=== PATIENT | male | born 1945 ===

== ENCOUNTER 2018-05-27 12:40 | Emergency (ER) | payer BC, MEDICARE ==
[2018-05-27] MEDS ORDERED: Aspirin 81 MG Tab.Chew PO SCH (13:00)
[2018-05-27] MEDS ORDERED: Sodium Chloride 0.9% 1,000 ML IV SCH (13:10)
[2018-05-27] MEDS ORDERED: Clopidogrel 75 MG Tab PO ONE (13:17)
[2018-05-27] MEDS ORDERED: Tenecteplase 50 MG Kit IV ONE (13:19)
[2018-05-27] MEDS ORDERED: Heparin Sodium 5,000 UNITS/0.5 ML Syringe IVPUSH ONE (13:20)
[2018-05-27] MEDS ORDERED: Heparin Sodium/D5W 25,000 UNITS/500 ML BAG IV SCH (13:30)
--- NOTE | 2018-05-27 14:12 | EDM.PDOC ---
ED HPI GENERAL MEDICAL PROBLEM - General Chief Complaint: General Stated Complaint: chest pain Time Seen by Provider: 05/27/18 12:50 Source of Information: Reports: Patient History Limitations: Reports: No Limitations - History of Present Illness INITIAL COMMENTS - FREE TEXT/NARRATIVE: This is a 73yo M presenting with chest pressure. He states he first starting having chest pressure this morning around 8 am after shoveling snow. He felt that it may be his muscles and then starting getting diaphoretic. He felt that the symptoms improved and did not come into the clinic or ER. He noted that the pressure went to his back and then back to his chest. He was nauseated as well. He was driven by his granddaughter to the ER around 1240pm. He denies any dizziness or shortness of breath but he still has a constant chest pressure. He took one baby aspirin this am. Onset: Today Duration: Hour(s):, Constant Location: Reports: Chest Quality: Reports: Ache Severity: Mild Improves with: Reports: None Worsens with: Reports: None - Related Data Allergies Allergy/AdvReac Type Severity Reaction Status Date / Time No Known Allergies Allergy Verified 05/27/18 13:40 Home Meds: Home Meds cephALEXin [Cephalexin] 05/27/18 [History] ED ROS GENERAL - Review of Systems Review Of Systems: ROS reveals no pertinent complaints other than HPI. ED EXAM, GENERAL - Physical Exam Exam: See Below Exam Limited By: No Limitations General Appearance: Alert, WD/WN, Mild Distress Eye Exam: Bilateral Eye: EOMI, PERRL Ears: Normal External Exam Nose: Normal Inspection Throat/Mouth: Normal Inspection Head: Atraumatic, Normocephalic Neck: Normal Inspection Respiratory/Chest: No Respiratory Distress, Lungs Clear, Normal Breath Sounds Cardiovascular: Normal Peripheral Pulses, Regular Rate, Rhythm, No Edema Peripheral Pulses: 2+: Dorsalis Pedis (L), Dorsalis Pedis (R) GI/Abdominal: Normal Bowel Sounds, Soft, Non-Tender Extremities: Normal Inspection, Normal Capillary Refill Neurological: Alert, Oriented, CN II-XII Intact Course - Orders/Labs/Meds Orders: Active Orders 24 hr Category Date Time Status EKG Documentation Completion [RC] ASDIRECTED Care 05/27/18 12:45 Active Chest 1V Frontal [CR] Stat Exams 05/27/18 12:45 Taken Aspirin Med 05/27/18 13:00 Active 243 mg PO DAILY Heparin Sodium/D5W [Heparin 25,000 Units in D5W 500 ML] Med 05/27/18 13:30 Ordered 25,000 units in 500 ml IV TITRATE EKG 12 Lead [EK] Routine Ther 05/27/18 12:45 Ordered Medication Orders Aspirin (Aspirin) 243 mg PO DAILY DIEGO Heparin Sodium/Dextrose (Heparin 25,000 Units In D5w 500 Ml) 25,000 units in 500 mls @ 0 mls/hr IV TITRATE DIEGO Labs: Laboratory Tests 05/27/18 05/27/18 05/27/18 Range/Units 12:45 12:54 12:54 WBC 14.6 H (4.0-11.0) K/uL RBC 4.99 (4.50-6.50) M/uL Hgb 14.8 (13.0-18.0) g/dL Hct 43.7 (40.0-54.0) % MCV 88 (76-96) fL MCH 29.7 (27.0-32.0) pg MCHC 33.9 (31.0-35.0) g/dL RDW 13.9 (11.0-16.0) % Plt Count 317 (150-400) K/uL MPV 9.4 (6.0-10.0) fL Neut % (Auto) 90.3 H (45.0-70.0) % Lymph % (Auto) 6.1 L (20.0-40.0) % [place] % (Auto) 3.2 (3.0-10.0) % Eos % (Auto) 0.1 L (1.0-5.0) % Baso % (Auto) 0.3 (0.0-0.5) % Neut # (Auto) 13.15 H (2.00-7.50) K/uL Lymph # (Auto) 0.89 L (1.50-4.00) K/uL [place] # (Auto) 0.46 (0.20-0.80) K/uL Eos # (Auto) 0.02 L (0.04-0.40) K/uL Baso # (Auto) 0.04 (0.02-0.10) K/uL PT 9.4 (9.0-11.5) sec INR 1.0 (1.0-3.5) Sodium 136 (136-145) mmol/L Potassium 4.2 (3.5-5.1) mmol/L Chloride 98 (98-107) mmol/L Carbon Dioxide 26.1 (21.0-32.0) mmol/L Anion Gap 16.1 H (5.0-15.0) mmol/L BUN 23 (8-26) mg/dL Creatinine 1.61 H (0.70-1.30) mg/dL Est Cr Clr Drug Dosing TNP Estimated GFR (MDRD) 43 L (>60) MLS/MIN BUN/Creatinine Ratio 14.3 (6-25) Glucose 201 H (74-100) mg/dL Calcium 9.6 (8.5-10.1) mg/dL Total Bilirubin 0.4 (0.0-1.0) mg/dL AST 44 H (15-37) U/L ALT 32 (12-78) U/L Alkaline Phosphatase 91 (46-116) U/L Troponin I 3.649 H* (0.000-0.060) ng/mL B-Natriuretic Peptide 608 H (0-125) pg/mL Total Protein 8.0 (6.4-8.2) g/dL Albumin 3.9 (3.4-5.0) g/dL Globulin 4.1 (2.2-4.2) g/dL Albumin/Globulin Ratio 1.0 (0.8-2.0) TSH, Ultra Sensitive 1.152 (0.358-3.740) uIU/mL Meds: Medications Generic Name Dose Route Start Last Admin Trade Name Freq PRN Reason Stop Dose Admin Aspirin 243 mg 05/27/18 13:00 Aspirin PO DAILY DIEGO Heparin Sodium/Dextrose 25,000 units in 500 mls @ 0 mls/hr 05/27/18 13:30 Heparin 25,000 Units In D5w 500 Ml IV TITRATE DIEGO 12 UNITS/KG/HR Discontinued Medications Generic Name Dose Route Start Last Admin Trade Name Freq PRN Reason Stop Dose Admin Clopidogrel Bisulfate 300 mg 05/27/18 13:17 Plavix PO 05/27/18 13:18 ONETIME ONE Heparin Sodium (Porcine) 4,000 units 05/27/18 13:20 Heparin Sodium IVPUSH 03/04/19 13:21 ONETIME ONE Tenecteplase 35 mg 05/27/18 13:19 Tnkase IV 05/27/18 13:20 ONETIME ONE Protocol Departure - Departure Time of Disposition: 14:10 Disposition: DC/Tfer to Acute Hospital 02 Condition: Undetermined Clinical Impression: DE, Myocardial infarction STEMI (ST elevation myocardial infarction) Qualifiers: Involved coronary artery: left main coronary artery Qualified Code(s): I21.01 - ST elevation (STEMI) myocardial infarction involving left main coronary artery - Discharge Information Referrals: PCP,None [Primary Care Provider] - - Problem List & Annotations (1) STEMI (ST elevation myocardial infarction) SNOMED Code(s): 255673263 Code(s): I21.3 - ST ELEVATION (STEMI) MYOCARDIAL INFARCTION OF [facility] SITE Status: Acute Priority: High Current Visit: Yes Qualifiers: Involved coronary artery: left main coronary artery Qualified Code(s): I21.01 - ST elevation (STEMI) myocardial infarction involving left main coronary artery - Problem List Review Problem List Initiated/Reviewed/Updated: Yes - My Orders Last 24 Hours: My Active Orders 05/27/18 12:45 EKG Documentation Completion [RC] ASDIRECTED Chest 1V Frontal [CR] Stat EKG 12 Lead [EK] Routine 05/27/18 13:00 Aspirin 243 mg PO DAILY 05/27/18 13:30 Heparin Sodium/D5W [Heparin 25,000 Units in D5W 500 ML] 25,000 units in 500 ml IV TITRATE - Assessment/Plan Last 24 Hours: My Active Orders 05/27/18 12:45 EKG Documentation Completion [RC] ASDIRECTED Chest 1V Frontal [CR] Stat EKG 12 Lead [EK] Routine 05/27/18 13:00 Aspirin 243 mg PO DAILY 05/27/18 13:30 Heparin Sodium/D5W [Heparin 25,000 Units in D5W 500 ML] 25,000 units in 500 ml IV TITRATE Plan: Patient placed on thrombolytics. Transfer via [employer] [facility] fixed wing. Accepting [employer] Dr. De La Rosa. Patient will go through ER. Grand-daughter present and patient has notified family himself.
--- NOTE | 2018-05-27 14:16 | CR ---
DATE OF SERVICE: 05/27/18 CLINICAL DATA: Chest pain. AP PORTABLE CHEST: No priors. The heart size is normal. There is calcification of the aortic arch. The lungs are clear. No pneumothorax. No pleural effusions. No evidence of acute intrathoracic disease. [id number] [facility]
== END 2018-05-27 14:30 ==
LOC: LB.ED 12:40
DX: I21.01 ST elevation (STEMI) myocardial infarction involving left main coronary artery (principal)
CPT/HCPCS: 36415; 71045; 80053; 83880; 84443; 84484; 85025; 85610; 93005; 96374; 96376; 99285; A0425; A0429; A9270; J1644; J3101; J7030

== ENCOUNTER 2018-07-15 00:57 | Emergency (ER) | payer SELFPAY ==
[2018-07-15] MEDS ORDERED: EPINEPHrine 1:10,000 1 MG/10 ML Syringe IVPUSH ONE ×4 (01:22→02:57)
--- NOTE | 2018-07-15 04:02 | ER ---
DATE OF SERVICE: 07/15/2018 The patient is a 73-year-old male who presented with CPR in progress to the emergency room. At that point, I did not have any information about what happened. Initial rhythm appeared to be asystole. The patient had a unshockable rhythm when analyzed, but it appeared to be asystole on the monitor. He was having automatic compressions performed. We did attempt to intubate him, but could not confirm placement on the initial intubation. He was intubated on the second attempt. Placement was confirmed with end-tidal CO2 monitor and condensation on the tube. Really could not hear breath sounds secondary to the automatic pump. Rhythm was still asystole before we could put epinephrine down the tube and IV had been established. He got a first dose of epinephrine. CPR was continued throughout. After a minute or two to circulate it, we went ahead and stopped CPR and he was still in asystole. He got a second and a third round of epi similarly. Had initially intended to stop the CPR after the third round of epi when the patient had what appeared to be 2 possible beats on the monitor, so he did end up getting a fourth round of epi. CPR progressed for about 13 to 14 minutes total. The patient turns out had been down for a significant period of time. He had collapsed at home. His friend drove around block to try and find some way to call 911, as her phone was not working. She came back to check on him. He was still down and not breathing. She drove to the hospital, which is about 3 or 4 blocks, waited for the nurse to unlock the door, told the nurse that he had collapsed, and she instructed the girlfriend to go back and check on the patient. She went back. The 911 was called. I would estimate the patient had been down for about half an hour potentially with no CPR in progress. He only had 2 potential beats. At no time did he show anything other than asystole except for that. PAMELA/KARLY /[id number] ERNESTO
[2018-07-15] MEDS ORDERED: Sodium Chloride 0.9% 10 ML Syringe FLUSH PRN (04:32)
== END 2018-07-15 01:25 | disposition expired ==
LOC: LB.ED 00:57
DX: I46.9 Cardiac arrest, cause unspecified (principal)
CPT/HCPCS: 31500; 92950; 99285; A0425; A0429; J0171